=== PATIENT | male | born 1985 | race Caucasian/White ===

== ENCOUNTER 2021-05-03 09:09 | Emergency (ER) | payer OTHER ==
[2021-05-03 09:38] LABS: HEMOGLOBIN 14.9 gm/dl (14.0-17.5); RED BLOOD COUNT 4.7 M/UL (4.20-5.50); WHITE BLOOD COUNT 5.8 K/UL (4.5-11.0)
[2021-05-03 09:57] LABS: BUN/CREATININE RATIO 16 (0-10)
[2021-05-03] MEDS ORDERED: CIPRO500 MG PO (12:37)
== END 2021-05-03 13:03 | disposition home or self-care (01) ==
LOC: ER1 09:09
PROVIDERS: Emergency Medicine
DX: N50.812 Left testicular pain (principal); R10.9 Unspecified abdominal pain
CPT/HCPCS: 76870; 80053; 81001; 83690; 85025; 96374; 99284; J2405; Q9967

== ENCOUNTER → 2021-07-06 | Outpatient (CLI) | payer OTHER ==
[~2021-07-06] MED LIST: CIPRO500 MG PO; MULTI-VITAMIN1 EACH PO; PEPCID20 MG PO; PROZAC40 MG PO
[2021-07-07 16:13] LABS: ENDOMYSIAL ANTIBODY IGA Negative (Negative); IMMUNOGLOBULIN A, QN, SERUM 287 mg/dL (90-386); T-TRANSGLUTAMINASE (TTG) IGA <2 U/mL (0-3)
== END ==
LOC: LAB 09:48
PROVIDERS: Internal Medicine Gastroenterology
DX: R19.7 Diarrhea, unspecified (principal); R94.5 Abnormal results of liver function studies
CPT/HCPCS: 36415; 82784; 87521

== ENCOUNTER → 2021-07-07 | Day surgery (SDC) | payer OTHER | END | disposition home or self-care (01) | LOC: OR 07:25 | DX: K29.80 Duodenitis without bleeding (principal); K29.50 Unspecified chronic gastritis without bleeding; K31.9 Disease of stomach and duodenum, unspecified; K62.89 Other specified diseases of anus and rectum; K64.1 Second degree hemorrhoids; B18.2 Chronic viral hepatitis C; F41.9 Anxiety disorder, unspecified; F32.A Depression, unspecified; E66.3 Overweight; Z68.28 Body mass index [BMI] 28.0-28.9, adult; Z87.891 Personal history of nicotine dependence; Z79.899 Other long term (current) drug therapy; Z20.822 Contact with and (suspected) exposure to COVID-19 | CPT/HCPCS: J2704; J7040 ==